=== PATIENT | female | born 1935 | race Caucasian/White ===

== ENCOUNTER 2020-04-07 08:35 | Inpatient (IN) ==
[2020-04-07] MEDS ORDERED: NORMAL SALINE 1,000 ML IV PRN (09:01)
[2020-04-07 09:17] LABS: Hematocrit 38.7 % (37.0-47.0); Hemoglobin 12.3 gm/dL (12.5-16.0); Mean Cell Volume 94.9 fl (78-100); Mean Corpuscular Hemoglobin 30.1 pg (27-31); Mean Corpuscular Hgb Conc 31.8 g/dl (32-36); Mean Platelet Volume 10.7 fl (8-12.5); Neutrophil # 4.9 K/mm3 (1.3-6.0); Platelet Count 171 K/mm3 (150-450); Red Blood Count 4.08 M/mm3 (4.2-5.4); Red Cell Distribution Width 13.4 % (11.5-14.0); White Blood Count 6.7 K/mm3 (4.0-10.5)
[2020-04-07 09:24] LABS: Prothrombin Time (Patient) 11.1 Seconds (9.1-10.7)
[2020-04-07 09:25] LABS: INR 1.13 INR (0.92-1.08); Partial Thrombolplastin Time 27.9 Seconds (24-32)
[2020-04-07 09:28] LABS: Albumin * 3.6 gm/dl (3.4-5.0); Anion Gap 9.4 mmol/L (6.8-13.8); BUN/Creatinine Ratio 12.7 (9.0-21.6); Bilirubin, Total 0.6 mg/dL (0.0-1.1); Ca. Corrected For Albumin 9.2 mg/dL (8.4-10.2); Calcium * 9.2 mg/dL (7.9-10.9); Carbon Dioxide 30.3 mmol/L (24-32.6); Potassium 3.7 mmol/L (3.4-4.6); Total Protein 6.4 gm/dL (6.2-8.2)
--- NOTE | 2020-04-07 10:47 | ERNOTE ---
Lower Extremity HPI - General Lower Extremities Pain: hip: left Time Seen by Provider: 04/07/20 08:51 Source: patient Exam Limitations: no limitations - Immun/Allergies/Home Medications Immunizations: IMMUNIZATION HX Immunizations Up to Date Yes History of Influenza Vaccine No Hx Pneumococcal Vaccination No Allergies/Adverse Reactions: Allergies Allergy/AdvReac Type Severity Reaction Status Date / Time Penicillins Allergy Verified 04/07/20 08:44 Home Medications: HOME MEDICATIONS NK 04/07/20 [Last Taken Unknown] - History of Present Illness Narrative: patient presents to ed with c/o fall and left hip pain, ems transport Occurred: this morning Location of Incident: home Method of Injury: Reports: fell Reason for Fall: Reports: lost balance, slipped Loss of Consciousness: Reports: no loss of consciousness Modifying Factors - (Improves): Reports: rest Modifying Factors - (Worsens): Reports: movement Associated Symptoms: Reports: unable to bear weight Other Injuries: Reports: none Review of Systems - Review of Systems Constitutional: Present: See HPI EYE: Present: no symptoms reported ENT: Present: no symptoms reported Respiratory: Present: no symptoms reported Cardiology: Present: no symptoms reported Gastrointestinal/Abdominal: Present: no symptoms reported Genitourinary: Present: no symptoms reported Musculoskeletal: Present: See HPI, muscle pain, muscle stiffness, joint pain Skin: Present: no symptoms reported Neurological: Present: no symptoms reported Endocrine: Present: no symptoms reported Hematologic/Lymphatic: Present: no symptoms reported Psych: Present: no symptoms reported All Other Systems: All systems neg except as marked Medical History (Last Updated 04/07/20 @ 08:43 by Charla Quesada RN) Breast cancer Surgical History: Surgical History (Last Updated 04/07/20 @ 08:43 by Charla Quesada RN) Hx of tonsillectomy Social History: (Last Updated 04/07/20 @ 08:44 by Charla Quesada RN) Tobacco: Smoking Status: Never smoker Alcohol: alcohol intake: never Physical Exam - Physical Exam General Appearance: Present: moderate distress, anxious Head Exam: Present: normal inspection, no evidence of injury Eye Exam: Normal inspection: bilateral, PERRL: bilateral, EOMI: bilateral Ears, Nose, Throat: Present: normal ENT inspection, normal pharynx Neck: Present: normal inspection, nontender Respiratory: Present: no respiratory distress, normal breath sounds, no accessory muscle use, chest nontender, lungs clear Cardiovascular/Chest: Present: regular rate, rhythm, no murmur, normal peripheral pulses Gastrointestinal/Abdominal: Present: normal bowel sounds, nontender, nondistended, soft, no organomegaly Pelvic Exam: Present: active bleeding Back Exam: Present: normal inspection, normal range of motion, no CVA tenderness, no vertebral tenderness Extremity Exam: Present: normal except -, bony tenderness, other Neurological Exam: Present: alert, oriented, normal mood/affect, no motor/sensory deficits Skin Exam: Present: normal color, warm/dry Lymphatic Exam: Present: no adenopathy Progress - Date and Time Seen: Date and Time: 04/07/20 10:44 condition unchanged, discussed x-rays with family, dr mitchell, dr marino, to be admitted to hospital - Results and Orders Patient's Lab Results:: I have reviewed the patient's lab results. - Vital Signs Patient's Vital Signs:: I have reviewed the patient's vital signs. Vital Signs: Vital Signs 04/07/20 08:37 04/07/20 08:42 04/07/20 09:12 Temperature 36.3 C Pulse Rate 63 57 L 54 L Respiratory Rate 20 14 12 Blood Pressure 175/58 H 175/58 H 172/59 H O2 Sat by Pulse Oximetry 95 92 L 93 04/07/20 09:42 04/07/20 09:57 Temperature Pulse Rate 55 L 53 L Respiratory Rate 14 12 Blood Pressure 170/58 H 158/65 H O2 Sat by Pulse Oximetry 94 94 - EKG EKG #1 EKG: NSR - X-Ray X-Ray #1 X-Ray: hip - intertrochanteric fx, cxr no acute process - Progress/Reassessment Chief Complaint: Hip Pain/Injury Progress:: Unchanged - Transfer of Care Expected Disposition: Discharge Plan - Plan Plan: to be asddmitted Departure Clinical Impression: Hip fracture, left - Departure Disposition: Short Term Hospital Inpatient Condition: Fair
[2020-04-07] MEDS ORDERED: MORPHINE SULFATE 4 MG/ML SYRG IV ONE (11:16)
[2020-04-07] MEDS ORDERED: ENOXAPARIN SODIUM 40 MG/0.4 ML SYRG SC SCH (12:30)
--- NOTE | 2020-04-07 12:37 | CONS ---
[facility] - General Date of Service: 04/07/20 Narrative: Mrs. Almanza is an 84-year-old female who fell at home resulting in injury to her left hip. She was seen in the emergency department and found to have a nondisplaced left intertrochanteric femur fracture. She ambulates independently. She is states that she is going to be living with her son. She denies any prior left hip pain or issues. Source: patient Exam Limitations: no limitations - History of Present Illness Timing/Duration: 4-6 hours Severity: mild Modifying Factors - (Worsens): Reports: movement Modifying Factors - (Improves): Reports: immobilization Associated Symptoms: denies symptoms Allergies/Adverse Reactions: Allergies Penicillins Allergy (Verified 04/07/20 08:44) Home Medications: Home Medications Medication Instructions Recorded Last Taken NK 04/07/20 Unknown Procedures Closed biopsy of uterus (11/28/06) Other dilation and curettage (11/28/06) Medications - Medications Current Medications: Current Medications Sodium Chloride (Sodium Chloride 0.9%) 1,000 mls @ 125 mls/hr IV .Q8H PRN PRN Reason: HYDRATION Stop: 05/07/20 09:02 Last Admin: 04/07/20 09:55 Dose: 125 mls/hr Documented by: Review of Systems - Review of Systems Narrative: Negative except for above Physical Examination - Exam Narrative: Left lower extremity: No lacerations, ecchymosis, or abrasions. Thigh is soft. Pain with hip range of motion. Able to flex and extend the toes and ankle. Sensation intact light touch. Palpable dorsalis pedis pulse. Vital Signs: Vital Signs - Last Taken Temp 36.3 C 04/07/20 08:37 Pulse 53 L 04/07/20 09:57 Resp 12 04/07/20 09:57 BP 158/65 H 04/07/20 09:57 Pulse Ox 94 04/07/20 09:57 O2 Oxygen Delivery Method Room Air Constitutional: Present: Alert, Oriented x3 - Results and Findings: Narrative: Left hip films: Nondisplaced intertrochanteric femur fracture Assessment: Nondisplaced left intertrochanteric femur fracture. Plan: She will be admitted to medicine. Plan is to proceed with surgical intervention with cephalo-medullary fixation. Risks, recovery, and benefits were discussed with the patient. The extremity is marked. She will receive IV Ancef preoperatively with a test dose. She will need 6 weeks of DVT prophylaxis postoperatively. Lab/Microbiology results last 24 hrs: Abnormal/Pending Laboratory Last 24 HRS 04/07/20 04/07/20 04/07/20 09:11 09:11 09:11 RBC 4.08 L Hgb 12.3 L MCHC 31.8 L Immature Gran % (Auto) 0.80 H Immature Gran # (Auto) 0.05 H Lymphocytes % 16.4 L Lymphocytes # 1.09 L PT 11.1 H INR (Anticoag Therapy) 1.13 H Random Glucose 120 H ALT 16 L
--- NOTE | 2020-04-07 12:41 | HP ---
Chief Complaint - Chief Complaint Date of Service: 04/07/20 Time of Service: 11:45 Chief Complaint: L hip pain. unable to bear wt. History of Present Illness: 84 yo wh. fe. fell at home and could not get up. Pain is unbearable with wt. bearing. Generally healthy and takes no meds. Tom was seen in the ER and found to have a l intertrochanteric non-displaced fracture. Xray reveals the fracture. She is to be admitted and have an ORIF of the L hip later this afternoon by Dr. Hector. Medical History (Last Updated 04/07/20 @ 08:43 by Charla Quesada RN) Breast cancer Surgical History: Surgical History (Last Updated 04/07/20 @ 08:43 by Charla Quesada RN) Hx of tonsillectomy Social History: (Last Updated 04/07/20 @ 08:44 by Charla Quesada RN) Tobacco: Smoking Status: Never smoker Alcohol: alcohol intake: never Review Of Systems (GEN) - Review of Systems Generalized/Overall Review: Present: No Symptoms Reported EENTM: Present: No Symptoms Reported Respiratory: Present: No Symptoms Reported Cardiac: Present: No Symptoms Reported Abdominal: Present: No Symptoms Reported Genitourinary: Present: No Symptoms Reported Musculoskeletal: Present: Joint Pain - L. hip Neurological: Present: No Symptoms Reported Skin: Present: No Symptoms Reported Endocrine: Present: No Symptoms Reported Misc: All systems neg except as marked Immunizations: IMMUNIZATION HX Immunizations Up to Date Yes History of Influenza Vaccine No Hx Pneumococcal Vaccination No Allergies/Adverse Reactions: Allergies Allergy/AdvReac Type Severity Reaction Status Date / Time Penicillins Allergy Verified 04/07/20 08:44 Home Medications: HOME MEDICATIONS NK 04/07/20 [Last Taken Unknown] Exam - Exam Vital Signs: Vital Signs - Last Taken Temp 36.3 C 04/07/20 08:37 Pulse 53 L 04/07/20 09:57 Resp 12 04/07/20 09:57 BP 158/65 H 04/07/20 09:57 Pulse Ox 94 04/07/20 09:57 Constitutional: Present: Alert, Oriented x3, Cooperative, Well developed, Well nourished, No distress ENT Exam: Present: normal ENT inspection, hearing grossly normal, pharynx normal, TMs normal Eye Exam: bilateral eye: normal inspection, PERRL, EOMI Neck: Present: non-tender, full range of motion, supple, normal inspection Back Exam: Present: normal inspection, no CVA tenderness, no vertebral tenderness Breasts: Present: Exam deferred, Other - History of breast cancer 1993 and treated with lumpectomy. Respiratory: Present: chest non-tender, lungs clear, normal breath sounds, no respiratory distress, no accessory muscle use Cardiovascular/Chest: Present: normal peripheral pulses, regular rate, rhythm, no chest tenderness, no edema, no gallop, no JVD, no murmur, no rub Peripheral Pulses: carotid (R): 2+, carotid (L): 2+, radial (R): 2+, radial (L): 2+ Abdomen: Present: Normal bowel sounds, soft, nontender, nondistended, no rebound tenderness, no hepatospenomegaly, no masses /Rectal: Present: Exam deferred Extremity: Present: normal range of motion - Except the L. hip., normal inspection, no pedal edema, no calf tenderness, normal capillary refill Skin Exam: Present: normal color, warm/dry, no cyanosis Lymphatic: Present: no adenopathy Neurologic: Present: plastic dolls mold filler II-XII nml as tested, normal cerebellar test, no motor/sensory deficits, alert, normal mood/affect, oriented x 3 Appearance: Present: appropriate appearance, appropriate insight, neat, no memory impairment Eye contact: Present: cooperative, good eye contact, normal speech Thoughts: Present: normal thought pattern, no apparent hallucination Diagnostic Studies: Abnormal Lab Results 04/07/20 04/07/20 04/07/20 Range/Units 09:11 09:11 09:11 RBC 4.08 L (4.2-5.4) M/mm3 Hgb 12.3 L (12.5-16.0) gm/dL MCHC 31.8 L (32-36) g/dl Immature Gran % (Auto) 0.80 H (0.001-0.429) % Immature Gran # (Auto) 0.05 H (0.000-0.0310) K/mm3 Lymphocytes % 16.4 L (20-51) % Lymphocytes # 1.09 L (1.5-3.5) k/mm3 PT 11.1 H (9.1-10.7) Seconds INR (Anticoag Therapy) 1.13 H (0.92-1.08) INR Random Glucose 120 H (70-110) mg/dL ALT 16 L (19-67) U/L Laboratory Results WBC 6.7 K/mm3 (4.0-10.5) 04/07/20 09:11 RBC 4.08 M/mm3 (4.2-5.4) L 04/07/20 09:11 Hgb 12.3 gm/dL (12.5-16.0) L 04/07/20 09:11 Hct 38.7 % (37.0-47.0) 04/07/20 09:11 MCV 94.9 fl (78-100) 04/07/20 09:11 MCH 30.1 pg (27-31) 04/07/20 09:11 MCHC 31.8 g/dl (32-36) L 04/07/20 09:11 RDW 13.4 % (11.5-14.0) 04/07/20 09:11 Plt Count 171 K/mm3 (150-450) 04/07/20 09:11 MPV 10.7 fl (8-12.5) 04/07/20 09:11 Immature Gran % (Auto) 0.80 % (0.001-0.429) H 04/07/20 09:11 Immature Gran # (Auto) 0.05 K/mm3 (0.000-0.0310) H 04/07/20 09:11 Neutrophils % 74.0 % (42-75.0) 04/07/20 09:11 Lymphocytes % 16.4 % (20-51) L 04/07/20 09:11 Monocytes % 7.1 % (0.0-9) 04/07/20 09:11 Eosinophils % 1.1 % (0.0-3.0) 04/07/20 09:11 Basophils % 0.6 % (0.0-1.0) 04/07/20 09:11 Nucleated RBC % 0.0 k/mm3 (0-1) 04/07/20 09:11 Neutrophils # 4.9 K/mm3 (1.3-6.0) 04/07/20 09:11 Lymphocytes # 1.09 k/mm3 (1.5-3.5) L 04/07/20 09:11 Monocytes # 0.5 k/mm3 (0.0-1.0) 04/07/20 09:11 Eosinophils # 0.1 k/mm3 (0.0-0.7) 04/07/20 09:11 Absolute Basophils 0.0 k/mm3 (0.0-0.1) 04/07/20 09:11 PT 11.1 Seconds (9.1-10.7) H 04/07/20 09:11 INR (Anticoag Therapy) 1.13 INR (0.92-1.08) H 04/07/20 09:11 PTT (Ashele) 27.9 Seconds (24-32) 04/07/20 09:11 Sodium 141 mmol/L (132-142) 04/07/20 09:11 Plasma Sodium 141 mmol/L (130-142) 04/07/20 09:11 Potassium 3.7 mmol/L (3.4-4.6) 04/07/20 09:11 Chloride 105 mmol/L (97-106) 04/07/20 09:11 Carbon Dioxide 30.3 mmol/L (24-32.6) 04/07/20 09:11 Anion Gap 9.4 mmol/L (6.8-13.8) 04/07/20 09:11 BUN 10 mg/dL (3-23) 04/07/20 09:11 Creatinine 0.79 mg/dL (0.4-1.4) 04/07/20 09:11 Est GFR (Non-Af Amer) 74 mL/min (60-130) D 04/07/20 09:11 BUN/Creatinine Ratio 12.7 (9.0-21.6) 04/07/20 09:11 Random Glucose 120 mg/dL (70-110) H 04/07/20 09:11 Calcium 9.2 mg/dL (7.9-10.9) 04/07/20 09:11 Calcium Adj for Albumin 9.2 mg/dL (8.4-10.2) 04/07/20 09:11 Total Bilirubin 0.6 mg/dL (0.0-1.1) 04/07/20 09:11 AST 17 U/L (0-48) 04/07/20 09:11 ALT 16 U/L (19-67) L 04/07/20 09:11 Alkaline Phosphatase 78 U/L (50-170) 04/07/20 09:11 Total Protein 6.4 gm/dL (6.2-8.2) 04/07/20 09:11 Albumin 3.6 gm/dl (3.4-5.0) 04/07/20 09:11 SARS-CoV-2 (PCR) Not detected (NotDetected) 04/07/20 10:55 Assessment/Plan - Narrative Narrative: 1. prepare for ORIF L. hip this afternoon under general anesthesia. 2. Keep NPO until after surgery. 3. Consult orthopedics. 4. Ortho to manage pain meds.
[2020-04-07] MEDS ORDERED: ceFAZolin SODIUM 1 GM VIAL ONE (13:26)
[2020-04-07] MEDS ORDERED: BUPIVACAINE HCL/EPINEPHRINE 50 ML VIAL ONE (13:26)
--- NOTE | 2020-04-07 13:27 | ANES ---
Anesthesia Pre Procedure Eval Vitals/Labs: Last Vital Signs Temp 36.3 C 04/07/20 08:37 Pulse 53 L 04/07/20 09:57 Resp 12 04/07/20 09:57 BP 158/65 H 04/07/20 09:57 Pulse Ox 94 04/07/20 09:57 HOME MEDICATIONS NK 04/07/20 [Last Taken Unknown] Allergies/Adverse Reactions: Allergies Allergy/AdvReac Type Severity Reaction Status Date / Time Penicillins Allergy Verified 04/07/20 08:44 - Planned Procedure Planned Procedure: hip fracture Medication List Reviewed:: Yes Allergies Verified: Yes Medical History (Last Reviewed 04/07/20 @ 13:23 by Carrington Sanford CRNA) Breast cancer Surgical History (Last Reviewed 04/07/20 @ 13:23 by Carrington Sanford CRNA) Hx of tonsillectomy - Family Anesthesia History Family History:: no untoward family reactions to anesthesia, no familial bleeding tendencies, no family history of clotting disorders, no family history of premature - Airway/Neck/Teeth Teeth Condition: missing, poor condition Denture Type: Full upper Neck Exam: full range of motion Mallampatti Score: 2 Thyromental (T-M) distance: > 6 cm Mandibulo Hyoid distance: > 3 cm - Respiratory Respiratory Physical: lungs clear Smoking Status: Never smoker Sleep Apnea currently treated: No Sleep Apnea by current assessment: No - Cardiovascular Tolerate Activity: Fair Heart Sounds: S1 & S2, Regular - Gastrointestinal NPO since: 2399 - Anesthesia Assessment and Plan ASA Class: PS, III Anesthesia Type Plan: Spinal
[2020-04-07 13:36] LABS: Urine Bilirubin Negative (NEGATIVE); Urine Blood Negative /ul (NEGATIVE); Urine Ketone Negative (NEGATIVE); Urine Nitrite Negative (NEGATIVE); Urine Protein Negative (NEGATIVE); Urine Urobilinogen Normal (NORMAL); Urine pH 6.5 pH (5.0-7.0)
[2020-04-07 13:37] LABS: Urine Amorphous Sediment Few - 1+ (NONE-FEW); Urine Appearance Clear (CLEAR); Urine Bacteria TRACE; Urine Color Yellow; Urine RBC TRACE /hpf (0-5); Urine WBC TRACE /hpf (0-5)
[2020-04-07] MEDS ORDERED: BUPIVACAINE HCL/PF 10 ML VIAL ONE (13:39)
[2020-04-07] MEDS ORDERED: MIDAZOLAM HCL/PF 5 MG/ML VIAL ONE (13:39)
[2020-04-07] MEDS ORDERED: PROPOFOL VIAL IV ONE (13:39)
[2020-04-07] MEDS ORDERED: MAG HYDROX/ALUMINUM HYD/SIMETH 30 ML UDC PO PRN (15:21)
[2020-04-07] MEDS ORDERED: ACETAMINOPHEN 500 MG TABLET PO PRN (15:21)
[2020-04-07] MEDS ORDERED: MAGNESIUM HYDROXIDE 30 ML UDC PO PRN (15:21)
[2020-04-07] MEDS ORDERED: MORPHINE SULFATE 2 MG/ML DISP.SYRIN IV PRN (15:21)
[2020-04-07] MEDS ORDERED: ONDANSETRON HCL/PF 2 MG/ML VIAL IV PRN (15:21)
--- NOTE | 2020-04-07 15:21 | OR ---
Operative Report - Dictated Report Narrative: Date: 04/07/2020 Surgeon: Manish Hector M.D. Mending Carrier: Leonardo Stein PA-C (provided an essential set of skilled educated handset assisted with transfer, positioning, prepping, draping, placement of instruments, insertion of implants, irrigation, closure wounds, and placement of dressings all which could not be performed by the available surgical crew) Preoperative diagnosis: Closed nondisplaced left intertrochanteric femur fracture Postoperative diagnosis: Closed nondisplaced left intertrochanteric femur fracture Operations and procedures: 1. Closed reduction, cephalo-medullary fixation left intertrochanteric femur fracture 2. Intraoperative interpretation of radiographs Anesthesia: Spinal Specimens: None Estimated blood loss: 25 milliliters Retained implants: [employer] Trigen InterTAN 130 degree size 10 mm by 18 centimeter nail with 105 millimeter lag screw and 100 millimeter compression screw, with distal locking screw Complications: None Indications for procedure: Mrs. Almanza is an 84-year-old female who injured the left leg after ground-level fall at home. They were admitted to the hospital after being evaluated in the emergency department. Once the medical provider felt that they were stable for surgical treatment, the risks and benefits alternatives were discussed. The risks of , blood clots, bleeding, infection, nerve/tendon/blood vessel injury, malunion, nonunion, failure of implants, painful implants, arthrosis, and need for additional procedures were discussed. The extremity was marked and consent was obtained on the floor. Procedure: After marking the operative extremity on the floor, the patient was taken to the operating room. A timeout was performed. IV antibiotics consisting of Ancef were administered. A spinal anesthetic was induced by anesthesia, and the patient was then placed onto a fracture table with a well-padded perineal post. The nonoperative leg was placed in a well-padded traction boot in slight extension without any traction with an SCD on the leg. The operative leg was placed in a well-padded traction boot. Longitudinal traction, internal rotation, and flexion were utilized in order to reduce the fracture. Preliminary images were attained utilizing C-arm in both the AP and lateral views. This confirmed that we had obtained adequate visualization of the fracture as well as reduction. Next the hip was then prepped and draped in a standard sterile fashion. Next the guidewire was placed percutaneously proximal to the greater trochanter to gabi a starting point at the tip of the greater trochanter centered on the lateral view. This was passed down to the level below the lesser trochanter. A scalpel was utilized in order to dissect down to the greater trochanter in order to place the soft tissue protector down to bone. The entry drill was then placed down the proximal femur to the level of the lesser trochanter. The proper size nail was then selected and impacted into place. The outrigger was utilized in order to confirm the appropriate depth of the nail. Using the alignment device on the outrigger, an incision was made over the lateral femur. Sharp dissection was carried through the iliotibial band down to the proximal femur. The guidewire was placed into the femoral head in a center- center position on AP and lateral views. The tip-apex distance of less than 25 mm combined was obtained. Once we felt that we had placed a guidewire in the appropriate position, it was measured. Next the compression screw site was drilled through the lateral femoral cortex. This was then drilled down to the appropriate depth, again confirming that we are within the confines the bone. The derotational bar was then placed and the lag screw was drilled. The lag screw was then secured in place seating fully ensuring that we were within the confines of the bone. The compression screw was then inserted allowing for compression while releasing the traction on the leg. Using C-arm this was visualized to allow for compression across the fracture site. Once is felt that we had adequately stabilized the intertrochanteric fracture, the distal interlocking screw was placed in a dynamic position. It was confirmed to be the appropriate length and within the nail on both AP and lateral views. The nail was secured allowing for controlled compression and the outrigger was removed. The wounds were then thoroughly irrigated. Final images were obtained. The hip was placed through range of motion and showed no crepitance. The deep fascia was closed with 0 Vicryl, the subcutaneous tissue with 3-0 Vicryl, and the skin was closed with silva. Sterile dressings of Xeroform, 4 x 4, and tape were applied. All sponge, sharp, and instrument counts were correct prior to closing the wounds. The patient was then awoken and transferred to the postanesthesia care unit in stable condition.
--- NOTE | 2020-04-07 15:54 | ANES ---
Post Anesthesia Discharge - Transfer of Care Transfer of Care handoff given to nurse: Yes - Discharge from PACU Discharge from PACU when meets criteria: Yes
--- NOTE | 2020-04-07 15:54 | ANES ---
Post Anesthesia Assessment - Vital Signs Vitals: Last Vital Signs Temp 36.6 C 04/07/20 15:40 Pulse 64 04/07/20 15:45 Resp 15 04/07/20 15:45 BP 118/40 04/07/20 15:45 Pulse Ox 99 04/07/20 15:45 Airway Patency: Normal - Mental Status Level Of Consciousness: Awake - Pain Level Pain Score: 0 - N/V Assessment Nausea/Vomiting Presence: None Dehydration:: No
[2020-04-07] MEDS: DEXTROSE 5%-LACTATED RINGERS 1,000 ML IV PRN (16:31)
[2020-04-07] MEDS: ceFAZolin SODIUM 1 GM in DEXTROSE 5 % IN WATER 100 ML IV SCH ×4 (17:07→23:03)
[2020-04-07] MEDS: HYDROcodone/ACETAMINOPHEN 1 EACH TABLET PO PRN (20:02)
[2020-04-07] MEDS: SENNOSIDES/DOCUSATE SODIUM 1 TAB TABLET PO SCH (23:18)
[2020-04-08] MEDS: DEXTROSE 5%-LACTATED RINGERS 1,000 ML IV PRN (02:44)
[2020-04-08] MEDS: ceFAZolin SODIUM 1 GM in DEXTROSE 5 % IN WATER 100 ML IV SCH ×2 (04:26)
[2020-04-08] MEDS ORDERED: ceFAZolin SODIUM 1 GM VIAL IV PRN (06:00)
[2020-04-08 06:50] LABS: Hematocrit 34.9 % (37.0-47.0); Hemoglobin 10.9 gm/dL (12.5-16.0); Mean Cell Volume 96.1 fl (78-100); Mean Corpuscular Hgb Conc 31.2 g/dl (32-36); Mean Platelet Volume 11.5 fl (8-12.5); Platelet Count 139 K/mm3 (150-450); Red Blood Count 3.63 M/mm3 (4.2-5.4); Red Cell Distribution Width 13.4 % (11.5-14.0); White Blood Count 7.9 K/mm3 (4.0-10.5)
[2020-04-08 07:01] LABS: Carbon Dioxide 29.4 mmol/L (24-32.6); Estimated Creat Clear 48.7; Potassium 3.3 mmol/L (3.4-4.6)
[2020-04-08 07:02] LABS: Anion Gap 8.9 mmol/L (6.8-13.8); Calcium * 8.7 mg/dL (7.9-10.9)
[2020-04-08] MEDS: RIVAROXABAN 20 MG TABLET PO SCH (08:31)
[2020-04-08] MEDS ORDERED: POTASSIUM CHLORIDE 10 MEQ TABLET.SA PO ONE (09:56)
[2020-04-08] MEDS ORDERED: RIVAROXABAN 20 MG TABLET PO SCH (13:30)
--- NOTE | 2020-04-08 14:40 | PN ---
Subjective - Date and Time Seen Date: 04/08/20 Time: 14:37 Subjective Narrative: 84-year-old female postop day 1 status post left cephalo-medullary nailing of intertrochanteric femur fracture. Patient overall is doing well. She notes her pain is mild to moderate. She notes she is been up and ambulated with therapy. She is tolerating a p.o. diet. She reports no other acute complaints. No acute events overnight. Objective - Vitals Vitals: Last Vital Signs Temp 37.4 C 04/08/20 14:15 Pulse 66 04/08/20 14:15 Resp 20 04/08/20 14:15 BP 167/53 H 04/08/20 14:15 Pulse Ox 87 L 04/08/20 14:15 - Abnormal Lab Findings Abnormal Lab Findings: Abnormal Lab Results 04/08/20 04/08/20 Range/Units 06:46 06:46 RBC 3.63 L (4.2-5.4) M/mm3 Hgb 10.9 L (12.5-16.0) gm/dL Hct 34.9 L (37.0-47.0) % MCHC 31.2 L (32-36) g/dl Plt Count 139 L (150-450) K/mm3 Potassium 3.3 L (3.4-4.6) mmol/L Random Glucose 144 H (70-110) mg/dL - Exam Constitutional: Present: Alert, Cooperative, No distress Respiratory: Present: no respiratory distress Extremity: Present: other - Left lower extremity--> sensation tact light touch, 5/5 plantar flexion dorsiflexion ankle, distal capillary refill brisk, diffuse mild tenderness about left hip, serosanguineous drainage on dressings moderate Appearance: Present: appropriate appearance Eye contact: Present: cooperative Thoughts: Present: normal thought pattern Cauti Physician Documentation - Urinary Catheter Management 2-way Urethral Date of Insertion: 04/07/20 Time of Insertion: 11:35 Date of Removal: 04/08/20 Time of Removal: 05:30 Assessment/Plan Plan Narrative: -84-year female postop day 1 status post left cephalo-medullary nailing of intertrochanteric femur fracture -Weightbearing as tolerated, assistive device PRN -PT/OT progress as tolerated -P.o. diet as tolerated -P.o. pain medication PRN -DVT prophylaxis: Xareljulissa SCDs in bed, PAYTON krishnan knee-high bilateral -Chronic medical conditions per medicine team -Disposition: Continue to monitor patient till all short-term goals are met and patient is stable to be discharged to a care facility - Problems/Diagnosis (1) Hip fracture, left Problem: Acute Qualifiers: Encounter type: initial encounter Fracture type: closed Qualified Code(s): S72.002A - Fracture of unspecified part of neck of left femur, initial encounter for closed fracture
--- NOTE | 2020-04-08 17:47 | PN ---
Subjective - Date and Time Seen Date: 04/08/20 Time: 09:00 Subjective Narrative: Maggie has had an uneventful night and is alert conversant and seems in good spirits this morning. The only medical issue that has developed is that her potassium is slightly low at 3.3. Her hemoglobin did drop some but is 10.1 g this morning. Otherwise her lab is uneventful. She has been afebrile. She has been up with physical therapy this morning and although was able to bear weight and take a few steps, physical therapy did not believe she was independent and safe to go home. Nursing has talked to her children. She lives with 1 of them in a mobile home that is quite small. It is her belief that they cannot take care of her in the home right now until she recovers from this hip injury. She is going to go to a halfway facility to rehab her left hip upon discha rge. Case management is looking for a location for her at this time. Objective - Review of Systems Generalized/Overall Review: Reports: Weakness EENTM: Reports: No Symptoms Reported Respiratory: Reports: No Symptoms Reported Cardiac: Reports: No Symptoms Reported Abdominal: Reports: No Symptoms Reported Genitourinary Symptoms: Reports: No Symptoms Reported Musculoskeletal Complaints: Reports: Joint Pain - Left hip. Status post ORIF 24 hours. Neurological: Reports: No Symptoms Reported Skin: Reports: No Symptoms Reported Endocrine: Reports: No Symptoms Reported - Vitals Vitals: Last Vital Signs Temp 37.4 C 04/08/20 14:15 Pulse 66 04/08/20 14:15 Resp 20 04/08/20 14:15 BP 167/53 H 04/08/20 14:15 Pulse Ox 87 L 04/08/20 14:15 - Abnormal Lab Findings Abnormal Lab Findings: Abnormal Lab Results 04/08/20 04/08/20 Range/Units 06:46 06:46 RBC 3.63 L (4.2-5.4) M/mm3 Hgb 10.9 L (12.5-16.0) gm/dL Hct 34.9 L (37.0-47.0) % MCHC 31.2 L (32-36) g/dl Plt Count 139 L (150-450) K/mm3 Potassium 3.3 L (3.4-4.6) mmol/L Random Glucose 144 H (70-110) mg/dL - EKG/Xray Findings EKG read: Reviewed by me XRAY: hip Interpretation: Reviewed by me - Exam Constitutional: Present: Alert, Oriented x3, Cooperative, Well developed, Well nourished, No distress - Having pain but not more than a 4/10 scale. ENT Exam: Present: normal ENT inspection, hearing grossly normal, pharynx normal, TMs normal Neck: Present: non-tender, supple, normal inspection, limited range of motion Breasts: Present: Exam deferred Respiratory: Present: chest non-tender, lungs clear, normal breath sounds, no respiratory distress, no accessory muscle use Cardiovascular/Chest: Present: normal peripheral pulses, regular rate, rhythm, no chest tenderness, no edema, no gallop, no JVD, no murmur, no rub Abdomen: Present: Normal bowel sounds, soft, nontender, nondistended, no rebound tenderness, no hepatospenomegaly, no masses /Rectal: Present: Exam deferred Extremity: Present: normal range of motion - Except for the left hip which she is guarding because of recent surgery and fracture., no pedal edema, no calf tenderness, normal capillary refill, leg pain - At the left hip Skin Exam: Present: normal color, warm/dry, no cyanosis Lymphatic: Present: no adenopathy Neurologic: Present: group leader semiconductor processing II-XII nml as tested, normal cerebellar test Appearance: Present: appropriate appearance, appropriate insight, neat, no memory impairment Eye contact: Present: cooperative, good eye contact, normal speech Thoughts: Present: normal thought pattern, no apparent hallucination Cauti Physician Documentation - Urinary Catheter Management 2-way Urethral Urethral Indwelling: No Date of Insertion: 04/07/20 Time of Insertion: 11:35 Date of Removal: 04/08/20 Time of Removal: 05:30 Assessment/Plan Plan Narrative: 1. Continue to have physical therapy work with her 2. Repeat lab tomorrow morning 3. custodial placement. I advised Maggie she would be there a minimum of 2 weeks and probably a maximum of 6. She is in agreement to go voluntarily. - Problems/Diagnosis (1) Hip fracture, left Problem: Acute Qualifiers: Encounter type: initial encounter Fracture type: closed Qualified Code(s): S72.002A - Fracture of unspecified part of neck of left femur, initial encounter for closed fracture (2) Senile osteoporosis Problem: Acute
[2020-04-08] MEDS: SENNOSIDES/DOCUSATE SODIUM 1 TAB TABLET PO SCH (20:34)
[2020-04-09] MEDS: HYDROcodone/ACETAMINOPHEN 1 EACH TABLET PO PRN ×2 (05:19→12:44)
[2020-04-09] MEDS ORDERED: NORMAL SALINE 1,000 ML IV PRN (08:42)
[2020-04-09] MEDS: RIVAROXABAN 20 MG TABLET PO SCH (08:47)
--- NOTE | 2020-04-09 12:27 | PN ---
Subjective - Date and Time Seen Date: 04/09/20 Time: 12:25 Subjective Narrative: Maggie is doing well. She has no complaints of pain. No chest pain shortness of breath lightheadedness or dizziness. Objective Objective Narrative: Patient is sitting up in bed she is on the phone. She is alert and oriented. She is quite pleasant and has no evidence of any discomfort. Examination of her dressings reveal proximal dressing is intact distal to incisions are not currently bandaged. There is no active drainage bleeding from the distal incisions. Her calf and thigh are supple. Labs and vitals reviewed. There is no active bleeding or drainage - Vitals Vitals: Last Vital Signs Temp 36.6 C 04/09/20 09:00 Pulse 57 L 04/09/20 10:20 Resp 14 04/09/20 10:20 BP 159/54 H 04/09/20 10:20 Pulse Ox 91 L 04/09/20 10:20 Cauti Physician Documentation - Urinary Catheter Management 2-way Urethral Urethral Indwelling: No Date of Insertion: 04/07/20 Time of Insertion: 11:35 Date of Removal: 04/08/20 Time of Removal: 05:30 Assessment/Plan - Problems/Diagnosis (1) Hip fracture, left Problem: Acute Qualifiers: Encounter type: initial encounter Fracture type: closed Qualified Code(s): S72.002A - Fracture of unspecified part of neck of left femur, initial encounter for closed fracture Narrative: Maggie is doing well at this time. Her pain is controlled. We will have new dressings applied to her incisions. Continue with PT. Continue with anticoagulation.
--- NOTE | 2020-04-09 15:59 | PN ---
Subjective - Date and Time Seen Date: 04/09/20 Time: 08:00 Subjective Narrative: Maggie has had an uneventful night except that her blood pressure is low this morning. It was 92 systolic this morning. At the time of my evaluation at 8 AM it was up to 131/49. She is anorexic this morning and does not want any food or fluids. Physical therapy has seen her and is just doing chair exercises today because of her low blood pressure. There have been no postoperative complications. Objective - Review of Systems Generalized/Overall Review: Reports: Weakness, Malaise EENTM: Reports: No Symptoms Reported Respiratory: Reports: No Symptoms Reported Cardiac: Reports: No Symptoms Reported Abdominal: Reports: No Symptoms Reported Genitourinary Symptoms: Reports: No Symptoms Reported Musculoskeletal Complaints: Reports: Joint Pain - Left hip pain due to recent ORIF pinning of this nondisplaced closed intertrochanteric fracture Neurological: Reports: No Symptoms Reported Skin: Reports: No Symptoms Reported Endocrine: Reports: No Symptoms Reported - Vitals Vitals: Last Vital Signs Temp 36.6 C 04/09/20 13:01 Pulse 58 L 04/09/20 14:23 Resp 16 04/09/20 13:01 BP 168/46 H 04/09/20 13:01 Pulse Ox 93 04/09/20 13:01 - Exam Constitutional: Present: Alert, Oriented x3, Cooperative, Well developed, Well nourished, No distress ENT Exam: Present: normal ENT inspection, hearing grossly normal, pharynx normal, TMs normal Neck: Present: non-tender, full range of motion Breasts: Present: Exam deferred Respiratory: Present: chest non-tender, lungs clear, normal breath sounds Cardiovascular/Chest: Present: normal peripheral pulses, regular rate, rhythm, no chest tenderness, no edema, no gallop, no JVD, no murmur, no rub Abdomen: Present: Normal bowel sounds, soft, nontender, nondistended, no rebound tenderness, no hepatospenomegaly, no masses /Rectal: Present: Exam deferred Extremity: Present: normal range of motion, non-tender, normal inspection, no pedal edema, no calf tenderness, normal capillary refill Skin Exam: Present: normal color, warm/dry, no cyanosis Lymphatic: Present: no adenopathy Neurologic: Present: cassandra developer II-XII nml as tested, no motor/sensory deficits, alert, normal mood/affect, oriented x 3 Appearance: Present: appropriate appearance, appropriate insight, neat, no memory impairment Eye contact: Present: cooperative, good eye contact, normal speech Thoughts: Present: normal thought pattern, no apparent hallucination Cauti Physician Documentation - Urinary Catheter Management 2-way Urethral Urethral Indwelling: No Date of Insertion: 04/07/20 Time of Insertion: 11:35 Date of Removal: 04/08/20 Time of Removal: 05:30 Assessment/Plan Plan Narrative: 1. Give fluid bolus of 500 cc of normal saline IV 2. Monitor vital signs 3. Reoffer food later this morning since her blood pressure is up. This may improve her appetite some. 4. Continue to progress activity as tolerated. - Problems/Diagnosis (1) Hip fracture, left Problem: Acute Qualifiers: Encounter type: initial encounter Fracture type: closed Qualified Code(s): S72.002A - Fracture of unspecified part of neck of left femur, initial encounter for closed fracture (2) Senile osteoporosis Problem: Acute
[2020-04-09] MEDS: SENNOSIDES/DOCUSATE SODIUM 1 TAB TABLET PO SCH (20:33)
[2020-04-10] MEDS: HYDROcodone/ACETAMINOPHEN 1 EACH TABLET PO PRN ×2 (07:39→11:50)
--- NOTE | 2020-04-10 08:28 | DS ---
(1) Hip fracture, left Problem: Acute Qualifiers: Encounter type: initial encounter Fracture type: closed Qualified Code(s): S72.002A - Fracture of unspecified part of neck of left femur, initial encounter for closed fracture (2) Senile osteoporosis Problem: Chronic Date of Discharge:: 04/10/20 Hospital Course: 84 yo wh. fe. fell at home and could not get up. Pain is unbearable with wt. bearing. Generally healthy and takes no meds. Tom was seen in the ER and found to have a l intertrochanteric non-displaced fracture. Xray reveals the fracture. She went to surgery for an ORIF pinning of the left hip the same day as admission. Postoperatively she is done fairly well. She initially had some hypotension and decreased appetite. Blood pressure had dropped to 92/41. I gave her a 500 cc bolus of normal saline and her pressure has been normal since. In fact she she is in the 150s systolic now. There is been no significant bleeding. She did have an expected drop in hemoglobin postoperatively to 10.1 g from 12.2 g. Physical therapy has been working with her. She is able to bear weight and take some steps. She is not independent enough to go home and her family does not believe they can take care of her there. She will be discharged to [facility] for us[facility]. She will be continued on anticoagulation therapy and pain medication as needed. Procedures Performed: see notes below - ORIF of the left hip Care Plan Goals: Physical strengthening and rehab of the left hip. Plan of Treatment: Physical therapy rehab at [facility] Results and Findings: Lab Pending Results 04/07/20 09:11: WBC 6.7, RBC 4.08 L, Hgb 12.3 L, Hct 38.7, MCV 94.9, MCH 30.1, MCHC 31.8 L, RDW 13.4, Plt Count 171, MPV 10.7, Immature Gran % (Auto) 0.80 H, Immature Gran # (Auto) 0.05 H, Neutrophils % 74.0, Lymphocytes % 16.4 L, Monocytes % 7.1, Eosinophils % 1.1, Basophils % 0.6, Nucleated RBC % 0.0, Neutrophils # 4.9, Lymphocytes # 1.09 L, Monocytes # 0.5, Eosinophils # 0.1, Absolute Basophils 0.0 04/07/20 09:11: Sodium 141, Plasma Sodium 141, Potassium 3.7, Chloride 105, Carbon Dioxide 30.3, Anion Gap 9.4, BUN 10, Creatinine 0.79, Est GFR (Non-Af Amer) 74 D, BUN/Creatinine Ratio 12.7, Random Glucose 120 H, Calcium 9.2, Calcium Adj for Albumin 9.2, Total Bilirubin 0.6, AST 17, ALT 16 L, Alkaline Phosphatase 78, Total Protein 6.4, Albumin 3.6 04/07/20 09:11: PT 11.1 H, INR (Anticoag Therapy) 1.13 H, PTT (Ashlee) 27.9 04/07/20 10:55: SARS-CoV-2 (PCR) Not detected 04/07/20 12:28: Urine Color Yellow, Urine Appearance Clear, Urine pH 6.5, Ur Specific [place] 1.010, Urine Protein Negative, Urine Glucose (UA) Negative, Urine Ketones Negative, Urine Blood Negative, Urine Nitrate Negative, Urine Bilirubin Negative, Urine Urobilinogen Normal, Ur Leukocyte Esterase Negative, Urine RBC Trace, Urine WBC Trace H, Ur Epithelial Cells Trace, Amorphous Sediment Few - 1+, Urine Bacteria Trace, Urine Culture Comments Culture to follow 04/08/20 06:46: WBC 7.9, RBC 3.63 L, Hgb 10.9 L, Hct 34.9 L, MCV 96.1, MCH 30.0, MCHC 31.2 L, RDW 13.4, Plt Count 139 L, MPV 11.5 04/08/20 06:46: Sodium 141, Plasma Sodium 142, Potassium 3.3 L, Chloride 106, Carbon Dioxide 29.4, Anion Gap 8.9, BUN 9, Creatinine 0.82, Est GFR (Non-Af Amer) 71, BUN/Creatinine Ratio 11.0, Random Glucose 144 H, Calcium 8.7 Discharge Location: [facility] Disposition: SNF Condition: Good Level of Care: SNF Discharge Activity: Activity as tolerated, Weight bearing Discharge Diet: General/regular food Skilled Nursing Therapy: Physical Therapy, Occupation Therapy Consultation Done:: Dr. Hector Additional Patient Instructions (free text): [facility]- PT/OT to eval and treat. Complete Home Medications List: Complete Home Medication List: Acetaminophen [Tylenol] 1,000 mg PO Q6H PRN #60 tab 04/10/20 HYDROcodone/ACETAMINOPHEN [[place] 5-325] 1 ea PO Q6H PRN #60 tab 04/10/20 Mag Hydrox/Aluminum Hyd/Simeth [Maalox Plus Suspension] 30 ml PO Q6H PRN #120 ml 04/10/20 Magnesium Hydroxide [Milk Of Magnesia] 30 ml PO DAILY PRN #120 ml 04/10/20 Rivaroxaban [Xarelto] 10 mg PO DAILY #30 tab 04/10/20 Sennosides/Docusate Sodium [Senokot-S] 2 tab PO HS #60 tab 04/10/20 Forms: Patient Portal Registration
[2020-04-10] MEDS: RIVAROXABAN 20 MG TABLET PO SCH (08:36)
[2020-04-10 12:29] VITALS: BP 127/46
== END 2020-04-10 12:30 | DRG 482 ==
LOC: ER 08:35 → MS 10:30
PROVIDERS: ADMIT Family Medicine; ATTEND Family Medicine
DX: M81.0 Age-related osteoporosis without current pathological fracture; S72.145A Nondisplaced intertrochanteric fracture of left femur, initial encounter for closed fracture; Z11.59 Encounter for screening for other viral diseases; W01.0XXA Fall on same level from slipping, tripping and stumbling without subsequent striking against object, initial encounter